=== PATIENT | male | born 1985 | race Caucasian/White ===

== ENCOUNTER 2019-08-20 12:50 | Outpatient (CLI) | payer OTHER, SELFPAY ==
--- NOTE | 2019-08-20 12:58 | MR_ITS ---
WS: [id number] INDICATION: Left iliac bone lesion TECHNIQUE: MRI the pelvis without and with gadolinium enhancement FINDINGS: Comparison is made to CT abdomen June 09, 2019. The previously described left iliac intramedullary lesion is faintly visualized today. This is diffi cult to visualize on the MRI but appears unchanged. No evidence of cortical destruction or significan t cortical edema. Suggestion of a tiny trace of enhancement. This has a sclerotic appearance on the p rior CT and most consistent with benign enchondroma. No other suspicious lesions. Otherwise normal bone marrow signal in the pelvis and hips. Normal pelvic soft tissues. No inguinal l ymphadenopathy. No pelvic lymphadenopathy. Distal spinal canal is patent. Normal visualized soft tiss ues. Mild annular bulging L4-5-1 tiny annular fissure. Sacrococcygeal junction appears normal. MR/MR pelvis wo/w con [id number] IMPRESSION: 1. Sclerotic lesion left ileum appears stable without significant edema or corazon olinium enhancement consistent with benign incidental enchondroma 2. Bone marrow signal in the pelvis and sacrum otherwise normal. 3. Mild annular bulging L4-5-1 tiny annular fissure.
== END 2019-08-20 12:51 | disposition home or self-care (01) ==
LOC: RADWPI 12:54
PROVIDERS: Family Provider Nurse Practitioner Family; PCP Nurse Practitioner Family; Visit Provider Nurse Practitioner Family
DX: K63.9 Disease of intestine, unspecified (principal); R19.04 Left lower quadrant abdominal swelling, mass and lump; Q05.7 Lumbar spina bifida without hydrocephalus
CPT/HCPCS: 72197; A9579

== ENCOUNTER → 2024-04-07 10:11 | Outpatient (BNVA) | payer OTHER, SELFPAY | PROVIDERS: Family Provider Nurse Practitioner Family; PCP Nurse Practitioner; Visit Provider Nurse Practitioner | DX: Z12.5 Encounter for screening for malignant neoplasm of prostate (principal); K29.70 Gastritis, unspecified, without bleeding; R53.83 Other fatigue | CPT/HCPCS: 80053; 80061; 82306; 82607; 84443; 85025; G0103 ==